=== PATIENT | male | born 1940 | race Caucasian/White ===

== ENCOUNTER → 2016-11-05 | Outpatient (CLI) | payer OTHER, BC ==
[~2016-11-05] MED LIST: GADAVIST IV PRN
--- NOTE | 2016-11-05 14:43 | DIAGNOSTIC IMAGING REPORT ---
MRI OF THE BRAIN WITHOUT AND WITH IV CONTRAST CLINICAL HISTORY: Hypertension. Memory loss. History of transient ischemic attack. COMPARISON STUDY: No previous studies for comparison. TECHNIQUE: Utilizing a 1.5 Germaine magnet and dedicated coil, multiplanar, multiecho imaging of the brain was performed pre and postcontrast administration. IV administration of 8 mL of Gadavist contrast was uneventful. FINDINGS: There are no areas of restricted diffusion. Mild to moderate ventricular dilatation is due to atrophy given proportional sulcal enlargement. The basilar cisterns are patent. There are no extra-axial fluid collections. Note is made of a 2 cm x 1.7 cm x 1.2 cm T1 hyperintense, T2 hypointense periventricular focus within the right parietooccipital region consistent with hemorrhage, likely subacute. In addition, there are numerous additional smaller T2 hypointense foci within the supra and infratentorial brain suggestive of old hemorrhage with hemosiderin and susceptibility artifact. No intracranial mass or pathologic enhancement is present. Moderate white matter T2 hyperintense foci suggest small vessel disease. There is an old infarct within the anterior right temporal lobe with encephalomalacia. Calvarial signal is maintained IMPRESSION: 1. 2 cm focus of signal abnormality within the right parietooccipital region. This is consistent with parenchymal hemorrhage which is likely subacute (3-7 days old). Numerous smaller foci of susceptibility artifact suggestive of old hemorrhage. The findings favor amyloid angiopathy. A much less likely consideration is numerous cavernomas. 2. No acute infarct. 3. Old right temporal lobe infarct. 4. Moderate cerebral atrophy and small vessel disease. Electronically signed by: Romero Hanson M.D. 11/05/2016 2:42 PM Dictated Date/Time: 11/05/2016 2:30 PM
== END | disposition home or self-care (01) ==
LOC: C.MRI 13:46
PROVIDERS: ATTEND Nurse Practitioner Family
DX: R41.3 Other amnesia (principal); Z86.73 Personal history of transient ischemic attack (TIA), and cerebral infarction without residual deficits; I10 Essential (primary) hypertension; Z72.0 Tobacco use; E03.9 Hypothyroidism, unspecified; R90.89 Other abnormal findings on diagnostic imaging of central nervous system; G31.9 Degenerative disease of nervous system, unspecified; I73.9 Peripheral vascular disease, unspecified

== ENCOUNTER → 2016-12-24 | Outpatient (CLI) | payer OTHER, BC ==
--- NOTE | 2016-12-24 12:24 | DIAGNOSTIC IMAGING REPORT ---
MR ANGIOGRAM OF THE BRAIN CLINICAL HISTORY: Hemorrhagic stroke. COMPARISON STUDY: MRI of the brain dated 11/05/2016. TECHNIQUE: 3-D [id number] MR angiography of the intracranial circulation is performed. 3-D tumble views are created and assessed. IV contrast was not administered for this examination. FINDINGS: There is origin of the right posterior cerebral artery. The right A1 segment appears diminutive. The internal carotid arteries are widely patent bilaterally, as are the anterior and middle cerebral arteries. The vertebrobasilar system and posterior cerebral arteries are widely patent. The left vertebral artery is dominant. There is no aneurysm, high-grade stenosis, or focal vessel cutoff seen throughout the intracranial circulation. A subacute hematoma is again identified within the right parietal lobe. Numerous foci of susceptibility artifact are seen throughout the brain and within the cerebellum. IMPRESSION: 1. Unremarkable MR angiogram of the brain. 2. Hematoma is again seen within the right parietal lobe. Numerous foci of susceptibility artifact are again noted throughout the brain and suggest amyloid angiopathy. Electronically signed by: Manoj Amezcua M.D. 12/24/2016 12:21 PM Dictated Date/Time: 12/24/2016 12:17 PM
--- NOTE | 2016-12-24 13:15 | DIAGNOSTIC IMAGING REPORT ---
ULTRASOUND OF THE CAROTID ARTERIES CLINICAL HISTORY: Stroke. COMPARISON STUDY: No priors. TECHNIQUE: Real-time, grayscale, and color Doppler sonography of the carotid arteries is performed. Images are reviewed in the transverse and longitudinal planes. FINDINGS: Blood pressure in the right arm measures 160/75 and blood pressure in the left arm measures 160/78. The carotid arteries are patent bilaterally and demonstrate antegrade flow. There is no significant atherosclerotic plaque identified. Normal doppler arterial waveforms are seen throughout. Velocity measurements are listed below. Common carotid peak systolic velocity (cm/sec): RIGHT: 68 LEFT: 113 ICA proximal peak systolic velocity (cm/sec): RIGHT: 73 LEFT: 61 ICA mid peak systolic velocity (cm/sec): RIGHT: 83 LEFT: 52 ICA distal peak systolic velocity (cm/sec): RIGHT: 98 LEFT: 63 ICA/CC peak systolic ratio: RIGHT: 1.4 LEFT: 0.6 Antegrade flow was shown in the vertebral arteries. The external carotid arteries are patent. IMPRESSION: 1. There is no sonographic evidence of hemodynamically significant stenosis in the right or left carotid arterial system. 2. Antegrade flow is shown in the vertebral arteries. Electronically signed by: Manoj Amezcua M.D. 12/24/2016 1:12 PM Dictated Date/Time: 12/24/2016 1:08 PM
--- NOTE | 2016-12-24 20:21 | ECHOCARDIOGRAM REPORT ---
*NOTICE TO RECEIVING [employer] This information is strictly Confidential and protected under [place] law. [place] law prohibits you from making any further disclosure of this information unless further disclosure is expressly permitted by the written consent of the person to whom it pertains or is authorized by law. A general authorization for the release of medical or other information is not sufficient for this purpose. Hospital accepts no responsibility if the information is made available to any other person, INCLUDING THE PATIENT. Interpretation Summary * Name: SALUD TERRAZAS Study Date: 12/24/2016 12:52 PM BP: 159/75 mmHg * Patient Location: [facility] HR: 62 * : 1940 (M/d/yyyy) Gender: Male Height: 756 in * Age: 76 yrs Ethnicity: [place] Weight: 180 lb * Ordering Physician: Sheryl Franco * Referring Physician: Sheryl Franco * Performed By: Idalia Galloway * * Reason For Study: CEREBRAL ISCHEMIA/ EMBOLUS * BSA: 11.2 m2 * Normal biventricular systolic function. * Left ventricular diastolic dysfunction. * Mild biatrial dilatation. * Trace aortic and pulmonic regurgitation. * Trace mitral and tricuspid regurgitation. * Mildly elevated estimated right ventricular systolic pressure. * No cardiac source of emboli noted. * -- Conclusions -- * Aortic valve sclerosis moderate, without significant aortic valvular stenosis. Procedure Details * A complete two-dimensional transthoracic echocardiogram was performed (2D, M-mode, Doppler and color flow Doppler). * A saline contrast injection was performed to assess for cardiac shunting. * The injection was performed through an intravenous line in the right arm. * The attending nurse who injected the saline contrast was CHLOE VALADEZ RN. * A total of 20 cc of agitated saline was given. Left Ventricle * The left ventricle is normal in size. * There is normal left ventricular wall thickness. * Ejection Fraction = 65-70%. * Left ventricular systolic function is normal. * A full diastolic examination was done with clinical findings of Class I diastolic dysfunction. * The left ventricular wall motion is normal. Right Ventricle * The right ventricle is normal in size and function. * The right ventricular systolic function is normal as assessed by tricuspid annular plane systolic excursion (TAPSE) (normal >1.5 cm). Atria * The left atrium is mildly dilated. * The right atrium is mildly dilated. * Injection of contrast documented no interatrial shunt. Mitral Valve * The mitral valve leaflets appear thickened, but open well. * There is mild mitral annular calcification. * There is no mitral valve stenosis. * There is trace mitral regurgitation. Tricuspid Valve * The tricuspid valve is normal. * There is no tricuspid stenosis. * There is trace tricuspid regurgitation. * Right ventricular systolic pressure is elevated at 30-40mmHg. Aortic Valve * The aortic valve is trileaflet. * Aortic valve sclerosis moderate, without significant aortic valvular stenosis. * Trace aortic regurgitation. Pulmonic Valve * The pulmonic valve is not well visualized. * The pulmonary valve is inadequately visualized, but the Doppler data is adequate for interpretation. * There is no pulmonic valvular stenosis. * Trace pulmonic valvular regurgitation. Great Vessels * The aortic root is normal size. Pericardium/Pleural * There is no pericardial effusion. Great Vessels * Normal inferior vena cava diameter and respiratory variation suggests normal central venous pressure. MMode 2D Measurements and Calculations Ao root diam 3.3 cm Ao root area 8.4 cm\S\2 ACS 1.9 cm LA dimension 4.3 cm asc Aorta Diam 3.1 cm LA/Ao 1.3 LVOT diam 1.7 cm LVOT area 2.2 cm\S\2 LVAd ap4 38.8 cm\S\2 LVLd ap4 9.2 cm EDV(MOD-sp4) 133.0 ml LVAs ap4 18.6 cm\S\2 LVLs ap4 6.7 cm ESV(MOD-sp4) 43.3 ml EF(MOD-sp4) 67.4 % LVAd ap2 30.4 cm\S\2 LVLd ap2 8.3 cm EDV(MOD-sp2) 94.3 ml LVAs ap2 15.4 cm\S\2 LVLs ap2 6.4 cm ESV(MOD-sp2) 31.5 ml EF(MOD-sp2) 66.6 % CO(MOD-sp4) 5.6 l/min CI(MOD-sp4) 0.50 l/min/m\S\2 SV(MOD-sp4) 89.7 ml SI(MOD-sp4) 8.0 ml/m\S\2 CO(MOD-sp2) 3.9 l/min CI(MOD-sp2) 0.35 l/min/m\S\2 SV(MOD-sp2) 62.8 ml SI(MOD-sp2) 5.6 ml/m\S\2 Doppler Measurements and Calculations MV E max chris 93.6 cm/sec MV A max chris 100.4 cm/sec MV E/A 0.93 MV dec time 0.23 sec Ao V2 max 148.2 cm/sec Ao max PG 8.8 mmHg Ao max PG (full) 3.4 mmHg LALIT(V,A) 1.7 cm\S\2 LALIT(V,D) 1.7 cm\S\2 AI max chris 396.7 cm/sec AI max PG 62.9 mmHg AI dec slope 208.7 cm/sec\S\2 AI P1/2t 556.7 msec LV V1 max PG 5.3 mmHg LV V1 max 115.4 cm/sec PA V2 max 74.2 cm/sec PA max PG 2.2 mmHg TR max chris 269.1 cm/sec
--- NOTE | 2016-12-29 12:31 | CODING QUERY MEDICAL NECESSITY ---
SUPPORTING DIAGNOSIS NEEDED A supporting diagnosis is required for the test/procedure performed on this patient in order for us to be reimbursed by the patient's insurance. Please provide a supporting diagnosis for the following test/procedure listed below next to the test name along with your signature. *If there is no additional diagnosis for this patient that would support the following test/procedure please document that below next to the test/procedure. Test(s)/Procedure(s) that require a supporting diagnosis: DOS 12/24 * MRA Head DIAGNOSIS: Provider Signature: Date: Thank you Ashley Ibrahim Health Information Management Once completed, please kindly fax back to [phone] For questions please call [phone]
== END | disposition home or self-care (01) ==
LOC: C.MRI 11:44
PROVIDERS: ATTEND Physician Assistant
DX: I61.8 Other nontraumatic intracerebral hemorrhage (principal); I68.0 Cerebral amyloid angiopathy; I63.9 Cerebral infarction, unspecified

== ENCOUNTER → 2018-04-14 | Outpatient (CLI) | payer OTHER, BC ==
--- NOTE | 2018-04-15 16:54 | PULMONARY FUNCTION TEST ---
Prebronchodilator spirometry suggests the presence of minimal small airways disease. There was a modest response to bronchodilator as evidenced by improved flow measured at low lung volumes. This may suggest the presence of early reversible airways disease. Clinical correlation is needed.
== END | disposition home or self-care (01) ==
LOC: C.RC 09:46
PROVIDERS: ATTEND Family Medicine
DX: R05 Cough (principal); R07.9 Chest pain, unspecified; Z71.6 Tobacco abuse counseling